=== PATIENT | male | born 1990 | race Caucasian/White ===

== ENCOUNTER 2024-11-11 16:01 | Inpatient (IN) | payer OTHER ==
[~2024-11-11] VITALS: Ht 185.4 cm; Wt 95.3 kg
[2024-11-11 18:21] LABS: BASOPHILS % 0.5 % (0.0-2.0); EOSINOPHILS % 0.2 % (0.0-5.0); HEMATOCRIT. 44.8 % (42.0-52.0); HEMOGLOBIN. 15.4 g/dL (14.0-18.0); LYMPHOCYTES % 14.9 % (20.0-50.0); MEAN CORPUSCULAR HEMOGLOBIN 30.3 pg (28.0-32.0); MEAN CORPUSCULAR HGB CONC 34.4 g/dL (31.0-37.0); MEAN CORPUSCULAR VOLUME 88.2 fL (80.0-94.0); MEAN PLATELET VOLUME 7.5 fl (7.4-10.4); MONOCYTES % 6.8 % (2.0-8.0); NEUTROPHILS % 77.6 % (40.0-76.0); PLATELET 269 x1000/uL (130-400); RED BLOOD CELL COUNT 5.08 mill/uL (4.7-6.1); RED CELL DISTRIBUTION WIDTH 13.6 % (11.6-14.6); WHITE BLOOD COUNT 10.2 x1000/uL (4.5-11.0)
[2024-11-11 18:36] LABS: CHLORIDE 101 mEq/L (98-107); SODIUM 140 mEq/L (136-145)
[2024-11-11 18:37] LABS: CARBON DIOXIDE 27 mEq/L (21-32)
[2024-11-11 18:39] LABS: CLARITY URINE CLOUDY (CLEAR); COLOR URINE DARK YELLOW (YELLOW); GLUCOSE URINE NEGATIVE (NEGATIVE); KETONES URINE 3+ (NEGATIVE); LEUKOCYTE ESTERASE URINE 2+ (NEGATIVE); NITRITE URINE NEGATIVE (NEGATIVE); OCCULT BLOOD URINE 3+ (NEGATIVE); PH URINE 5.5 (4.5-8.0); PROTEIN URINE 1+ (NEGATIVE); SPECIFIC GRAVITY URINE 1.016 (1.005-1.030)
[2024-11-11 18:42] LABS: CREATININE 1.3 mg/dL (0.6-1.3); GLUCOSE 96 mg/dL (70-105)
[2024-11-11 18:43] LABS: ETHANOL BLOOD < 10 mg/dL (<10); UREA NITROGEN BLOOD 11 mg/dL (9-23)
[2024-11-11 18:44] LABS: ACETAMINOPHEN 2 ug/mL (10-30); ALANINE AMINOTRANSFERASE 55 IU/L (10-49); ALBUMIN 5.1 g/dL (3.2-4.8); ASPARTATE AMINOTRANSFERASE 111 IU/L (<34)
[2024-11-11 18:45] LABS: BILIRUBIN DIRECT 1.1 mg/dL (<=3.0); PROTEIN TOTAL 7.7 g/dL (6.0-8.3)
[2024-11-11 18:47] LABS: THYROID STIMULATING HORMONE 2.48 uIU/mL (0.55-4.78)
[2024-11-11 19:03] LABS: *AMPHETAMINES SCREEN URINE PRESUMPTIVE POSITIVE (NEGATIVE); *BARBITURATES SCREEN URINE NEGATIVE (NEGATIVE); *BENZODIAZEPINES SCREEN URINE NEGATIVE (NEGATIVE); *COCAINE SCREEN URINE PRESUMPTIVE POSITIVE (NEGATIVE); CANNABINOID URINE SCREEN NEGATIVE (NEGATIVE); ECSTASY MDMA SCREEN URINE CONF.TEST INDICATED (NEGATIVE); METHADONE URINE SCREEN NEGATIVE (NEGATIVE); OPIATES URINE SCREEN NEGATIVE (NEGATIVE); PHENCYCLIDINE URINE SCREEN NEGATIVE (NEGATIVE)
[2024-11-11 19:04] LABS: BACTERIA URINE 4+; RBC URINE 15-25 /hpf (0-2); SQUAMOUS EPITHELIAL CELL URINE RARE /lpf (RARE/1+)
[2024-11-11 20:28] LABS: CREATINE KINASE 3535 IU/L (46-171)
[2024-11-11] MEDS: SODIUM CHLORIDE 0.9% 1,000 ML IV ONE ×2 (21:23→21:24)
[2024-11-11] MEDS ORDERED: LORAZEPAM 1MG TABLET PO ONE (21:30)
[2024-11-11] MEDS: CEFTRIAXONE 1GM/50ML 50 ML IV ONE (21:34)
[2024-11-11] MEDS ORDERED: LORAZEPAM 2MG/ML INJ IV ONE (21:45)
[2024-11-11] MEDS: LORAZEPAM 2MG/ML UD SYRINGE IV SCH (21:50)
[2024-11-11 23:30] VITALS: BP 126/83; PULSE 98; RESP 17; TEMP 36.6
[2024-11-12] MEDS ORDERED: LORAZEPAM 0.5MG TABLET PO PRN ×2 (00:45→04:45)
[2024-11-12] MEDS ORDERED: ONDANSETRON HCL 4MG/2ML INJ IV PRN (00:45)
[2024-11-12] MEDS ORDERED: CLONIDINE 0.1MG TABLET PO PRN (00:45)
[2024-11-12] MEDS ORDERED: GUAIFENESIN 200MG/10ML SUGAR FREE UDC PO PRN (00:45)
[2024-11-12] MEDS ORDERED: MAGNESIUM/ALUMINUM HYDROXIDE/SIMETHICONE 30ML UDC PO PRN (00:45)
[2024-11-12] MEDS ORDERED: ACETAMINOPHEN 325MG TABLET PO PRN ×2 (00:45)
[2024-11-12] MEDS ORDERED: IPRATROPIUM/ALBUTEROL 0.5-3(2.5)MG/3ML NEB HHN PRN (00:45)
[2024-11-12] MEDS ORDERED: DOCUSATE SODIUM 100MG CAPSULE PO PRN (00:45)
[2024-11-12] MEDS: SODIUM CHLORIDE 0.9% 1,000 ML IV SCH (00:59)
[2024-11-12] MEDS ORDERED: LORAZEPAM 2MG/ML UD SYRINGE IV PRN (02:15)
[2024-11-12 04:00] VITALS: BP 114/61; PULSE 62; RESP 18; TEMP 36; O2SAT 96
[2024-11-12 08:00] VITALS: BP 120/73; PULSE 86; RESP 16; TEMP 36.6; O2SAT 96
[2024-11-12 11:53] LABS: LACTATE DEHYDROGENASE 214 IU/L (120-246); TROPONIN I HIGH SENSITIVITY 8 ng/L (3.0-53)
[2024-11-12 12:00] VITALS: BP 120/62; PULSE 70; RESP 16; TEMP 36.4; O2SAT 96
[2024-11-12 12:04] LABS: CREATINE KINASE 2362 IU/L (46-171)
[2024-11-12 16:00] VITALS: BP 116/65; PULSE 84; RESP 16; TEMP 36.1; O2SAT 96
[2024-11-12 17:16] LABS: TROPONIN I HIGH SENSITIVITY 7 ng/L (3.0-53)
[2024-11-12 17:28] LABS: CREATINE KINASE 1971 IU/L (46-171)
[2024-11-12] MEDS ORDERED: EMTR200C3 PO (17:57)
[2024-11-12 20:00] VITALS: BP 115/63; PULSE 86; RESP 18; TEMP 36.4; O2SAT 96
[2024-11-12] MEDS: FAMOTIDINE 20MG TABLET PO SCH (20:53)
[2024-11-12] MEDS: CEFTRIAXONE 1GM/50ML 50 ML IV SCH (20:54)
[2024-11-13] VITALS: BP 101/62; PULSE 65; RESP 18; TEMP 36.7; O2SAT 99
[2024-11-13 04:00] VITALS: BP 108/68; PULSE 65; RESP 18; TEMP 36.5; O2SAT 99
[2024-11-13 06:56] LABS: CHLORIDE 108 mEq/L (98-107); SODIUM 142 mEq/L (136-145)
[2024-11-13 06:57] LABS: CALCIUM 8.5 mg/dL (8.7-10.4); CARBON DIOXIDE 26 mEq/L (21-32)
[2024-11-13 07:01] LABS: BASOPHILS % 0.7 % (0.0-2.0); EOSINOPHILS % 4.4 % (0.0-5.0); HEMATOCRIT. 36.8 % (42.0-52.0); HEMOGLOBIN. 12.5 g/dL (14.0-18.0); LYMPHOCYTES % 45.2 % (20.0-50.0); MEAN CORPUSCULAR HEMOGLOBIN 30.1 pg (28.0-32.0); MEAN CORPUSCULAR HGB CONC 34.1 g/dL (31.0-37.0); MEAN CORPUSCULAR VOLUME 88.5 fL (80.0-94.0); MEAN PLATELET VOLUME 7.7 fl (7.4-10.4); MONOCYTES % 6.6 % (2.0-8.0); NEUTROPHILS % 43.1 % (40.0-76.0); PLATELET 207 x1000/uL (130-400); RED BLOOD CELL COUNT 4.16 mill/uL (4.7-6.1); RED CELL DISTRIBUTION WIDTH 13.7 % (11.6-14.6); WHITE BLOOD COUNT 4.1 x1000/uL (4.5-11.0)
[2024-11-13 07:02] LABS: CREATININE 0.8 mg/dL (0.6-1.3); GLUCOSE 89 mg/dL (70-105); UREA NITROGEN BLOOD 6 mg/dL (9-23)
[2024-11-13 07:04] LABS: ALANINE AMINOTRANSFERASE 46 IU/L (10-49); ALBUMIN 3.8 g/dL (3.2-4.8); ASPARTATE AMINOTRANSFERASE 61 IU/L (<34); BILIRUBIN DIRECT 0.5 mg/dL (<=3.0); BILIRUBIN TOTAL 1.6 mg/dL (0.1-1.0); PROTEIN TOTAL 5.7 g/dL (6.0-8.3)
[2024-11-13 08:00] VITALS: BP 114/70; PULSE 60; RESP 20; TEMP 36.4; O2SAT 100
[2024-11-13 09:59] VITALS: BP 114/70; PULSE 60; TEMP 97.5; O2SAT 100
== END 2024-11-13 10:20 | disposition home or self-care (01) | DRG 918 ==
LOC: ER 16:01 → 7EST 21:52 → EDBEDREQ 21:54 → EDBEDREQTM 21:54 → ENRESERV 22:42
PROVIDERS: ADMIT Internal Medicine; ATTEND Internal Medicine
PROC: GZ56ZZZ Individual Psychotherapy, Supportive (ICD-10-PCS; principal; 2024-11-12)
DX: T43.621A Poisoning by amphetamines, accidental (unintentional), initial encounter (principal); M62.82 Rhabdomyolysis; N39.0 Urinary tract infection, site not specified; G93.40 Encephalopathy, unspecified; Z59.00 Homelessness unspecified; F14.10 Cocaine abuse, uncomplicated; E80.6 Other disorders of bilirubin metabolism; Z20.822 Contact with and (suspected) exposure to COVID-19; F20.9 Schizophrenia, unspecified; F32.A Depression, unspecified; F15.10 Other stimulant abuse, uncomplicated; Y92.89 Other specified places as the place of occurrence of the external cause
CPT/HCPCS: 36415; 80048; 80076; 80305; 80307; 80320; 80329; 81003; 82550; 83615; 84443; 84484; 85025; 87426; 93005; 99285; A4606; J0696; J2060; J7030; G0480